=== PATIENT | female | born 1965 ===

== ENCOUNTER 2017-06-09 16:10 | Emergency (ER) | payer SELFPAY ==
[2017-06-09 16:20] VITALS: BP 184/94; PULSE 99; RESP 18; TEMP 98.2; O2SAT 98
--- NOTE | 2017-06-09 17:03 | C.PDOC ---
History Of Present Illness 52-YEAR-OLD FEMALE, PRESENTS TO THE EMERGENCY DEPARTMENT WITH COMPLAINTS OF GENERALIZED MALAISE X 3 DAYS. PS HE WAS STARTED ON NORVASC X 3 DAYS. NO FOCAL WEAKNESS "I JUST FEEL LIKE I DON'T WANT TO DO ANYTHING". NO OTHER ASSOC SX EXAM NEG MDM ADVISED CONT CURRENT MEDS, KEEP JOURNAL FOR POSSIBLE MED SIDE EFFECT FU PMD 2-4 WKS Time Seen by Provider: 06/09/17 16:28 Chief Complaint (Nursing): Medical Clearance History Per: Patient History/Exam Limitations: no limitations Onset/Duration Of Symptoms: Days Past Medical History Reviewed: Historical Data, Nursing Documentation, Vital Signs Vital Signs: Last Vital Signs Temp 98.2 F 06/09/17 16:14 Pulse 99 H 06/09/17 16:14 Resp 18 06/09/17 16:14 BP 184/94 H 06/09/17 16:14 Pulse Ox 98 06/09/17 17:40 - Medical History PMH: HTN, Hypercholesterolemia Family History: States: No Known Family Hx - Social History Hx Alcohol Use: No Hx Substance Use: No - Immunization History Hx Tetanus Toxoid Vaccination: No Hx Influenza Vaccination: No Hx Pneumococcal Vaccination: No Review Of Systems Except As Marked, All Systems Reviewed And Found Negative. Constitutional: Positive for: Malaise. Negative for: Fever, Chills Cardiovascular: Negative for: Chest Pain, Palpitations Respiratory: Negative for: Shortness of Breath Gastrointestinal: Negative for: Nausea, Vomiting Neurological: Negative for: Weakness, Numbness Physical Exam - Physical Exam Appears: Non-toxic, No Acute Distress Skin: Warm, Dry, No Rash Head: Atraumatic, Normacephalic Eye(s): bilateral: Normal Inspection, PERRL, EOMI Nose: Normal Oral Mucosa: Moist Lips: Normal Appearing Neck: Normal ROM Cardiovascular: Rhythm Regular, No Murmur Respiratory: Normal Breath Sounds Gastrointestinal/Abdominal: Soft, No Tenderness Back: Normal Inspection Extremity: Normal ROM Neurological/Psych: Oriented x3, Normal Speech ED Course And Treatment O2 Sat by Pulse Oximetry: 98 (on RA) Pulse Ox Interpretation: Normal Medical Decision Making Medical Decision Making: ADVISED CONT CURRENT MEDS, KEEP JOURNAL FOR POSSIBLE MED SIDE EFFECT FU PMD 2-4 WKS Disposition Counseled Patient/Family Regarding: Diagnosis, Need For Followup - Disposition Referrals: YOUR,PMD [Other] Disposition: HOME/ ROUTINE Disposition Time: 17:15 Condition: GOOD Instructions: Amlodipine (By mouth) Forms: [facility] [employer] [facility] ([place]an) - Clinical Impression Clinical Impression: Medication side effect - Scribe Statement The provider has reviewed the documentation as recorded by the Scribe (Maddi Cedillo) All medical record entries made by the Scribe were at my direction and personally dictated by me. I have reviewed the chart and agree that the record accurately reflects my personal performance of the history, physical exam, medical decision making, and the department course for this patient. I have also personally directed, reviewed, and agree with the discharge instructions and disposition.
== END 2017-06-09 17:37 | disposition home or self-care (01) ==
LOC: C.ER 16:10
DX: R53.81 Other malaise (principal); T46.1X5A Adverse effect of calcium-channel blockers, initial encounter; I10 Essential (primary) hypertension; E78.00 Pure hypercholesterolemia, unspecified

== ENCOUNTER 2017-08-06 07:02 | Emergency (ER) | payer SELFPAY ==
[2017-08-06 07:12] VITALS: RESP 18; O2SAT 96
[2017-08-06] MEDS ORDERED: Albuterol-Ipratrop 3 mg / 0.5 (3 ml) UD ONE (07:14)
--- NOTE | 2017-08-06 07:52 | RAD ---
HISTORY: cough and SOB COMPARISON: No prior. TECHNIQUE: Chest PA and lateral FINDINGS: LUNGS: No active pulmonary disease. PLEURA: No significant pleural effusion identified. No pneumothorax apparent. CARDIOVASCULAR: Normal. OSSEOUS STRUCTURES: Thoracic spondylosis VISUALIZED UPPER ABDOMEN: Normal. OTHER FINDINGS: None. IMPRESSION: No active disease. No infiltrate
--- NOTE | 2017-08-06 08:07 | C.PDOC ---
History Of Present Illness 52 year old female with no significant PMHx presents to the ED with complaints of non-productive cough and congestion for one week with worsening shortness of breath last night. Patient reports she was seen by PMD 4 days prior and was given Promethazine and is continuing to take antibiotics. Patient denies fever, chest pain, weakness, numbness, or other complaints at this time. Time Seen by Provider: 08/06/17 07:23 Chief Complaint (Nursing): Cough, Cold, Congestion History Per: Patient History/Exam Limitations: no limitations Onset/Duration Of Symptoms: Days (1 week ), Worse Since (last night) Current Symptoms Are (Timing): Still Present Location Of Pain: None Sick Contacts (Context): None Associated Symptoms: Cough. denies: Fever, Chills, Sputum, Nausea, Vomiting, Diarrhea Recent travel outside of the [place]: No Past Medical History Reviewed: Historical Data, Nursing Documentation, Vital Signs Vital Signs: Last Vital Signs Temp 97.7 F 08/06/17 08:18 Pulse 69 08/06/17 08:18 Resp 18 08/06/17 08:18 BP 148/80 08/06/17 08:18 Pulse Ox 96 08/06/17 10:53 - Medical History PMH: HTN, Hypercholesterolemia Family History: States: Unknown Family Hx - Social History Hx Alcohol Use: No Hx Substance Use: No - Immunization History Hx Tetanus Toxoid Vaccination: No Hx Influenza Vaccination: No Hx Pneumococcal Vaccination: No Review Of Systems Constitutional: Negative for: Fever, Chills ENT: Negative for: Ear Pain Cardiovascular: Negative for: Chest Pain, Palpitations Respiratory: Positive for: Cough, Shortness of Breath. Negative for: Sputum Gastrointestinal: Negative for: Nausea, Vomiting, Abdominal Pain, Diarrhea Physical Exam - Physical Exam Appears: Non-toxic, No Acute Distress, Other (patient appears comfortable and is not in respiratory distress ) Skin: Warm, Dry, No Rash Head: Atraumatic, Normacephalic, No Tenderness Eye(s): bilateral: Normal Inspection, PERRL, EOMI Nose: Normal, No Discharge Oral Mucosa: Moist Throat: Normal, No Erythema, No Exudate Neck: Supple Chest: Symmetrical, No Deformity, No Tenderness Cardiovascular: Rhythm Regular, No Murmur Respiratory: No Rales, No Rhonchi, No Wheezing, Other (clear to auscultation on exam following Duoneb treatment given in Triage ) Gastrointestinal/Abdominal: Soft, No Tenderness, No Distention, No Guarding, No Rebound Extremity: Normal ROM, No Tenderness Neurological/Psych: Oriented x3 ED Course And Treatment O2 Sat by Pulse Oximetry: 96 (RA) Pulse Ox Interpretation: Normal - Radiology CXR: Viewed By Me, Read By Radiologist CXR Interpretation: Yes: No Acute Disease Progress Note: CXR was ordered and patient was given Prednisone. Medical Decision Making Medical Decision Making: as per triage, patient had wheeze and given duoneb treatment. Upon my evaluation patient had no wheezes and reported feeling better after treatment. XRay of chest showed no infiltrates or pulmonary disease. She has no fever or respiratory distress. Patient stable for discharge and given rx Disposition Counseled Patient/Family Regarding: Diagnosis, Need For Followup, Rx Given - Disposition Referrals: Ld Lr MD [Staff Provider] - Disposition: HOME/ ROUTINE Disposition Time: 08:05 Condition: STABLE Additional Instructions: Follow up with your primary medical doctor or clinic in 2-5 days for further evaluation. Take medications as prescribed. Return to the emergency department at any time if symptoms persist or worsen. Prescriptions: Albuterol HFA [Ventolin HFA 90 mcg/actuation (8 g)] 1 puff IH Q4 #1 puff Benzonatate [Tessalon Perles] 100 mg PO TID #30 sgl Prednisone 50 mg PO DAILY #4 tablet Instructions: Upper Respiratory Infection (ED) Forms: [employer] ([place]an) - POA Present On Arrival: None - Clinical Impression Clinical Impression: Upper respiratory infection - PA / CUT PRESS OPERATOR / Resident Statement MD/DO has reviewed & agrees with the documentation as recorded. - Scribe Statement The provider has reviewed the documentation as recorded by the Scribe Mandy Johnston All medical record entries made by the Scribe were at my direction and personally dictated by me. I have reviewed the chart and agree that the record accurately reflects my personal performance of the history, physical exam, medical decision making, and the department course for this patient. I have also personally directed, reviewed, and agree with the discharge instructions and disposition.
[2017-08-06 08:18] VITALS: BP 148/80; PULSE 69; TEMP 97.7
== END 2017-08-06 08:18 | disposition home or self-care (01) ==
LOC: C.ER 07:02
DX: J06.9 Acute upper respiratory infection, unspecified (principal); F17.210 Nicotine dependence, cigarettes, uncomplicated